=== PATIENT | female | born 1945 | race Caucasian/White ===

== ENCOUNTER 2018-12-07 08:00 | Outpatient (CLI) | payer MEDICARE, OTHER | END 2018-12-07 23:59 | disposition home or self-care (01) | LOC: D.MAMMO 08:00 | PROVIDERS: ATTEND Family Medicine | DX: Z12.31 Encounter for screening mammogram for malignant neoplasm of breast (principal) ==

== ENCOUNTER 2019-04-14 18:50 | Emergency (ER) | payer MEDICARE, OTHER ==
[~2019-04-14] VITALS: Ht 165.1 cm; Wt 50.0 kg
[2019-04-14 19:06] VITALS: Ht 165.1 cm; Wt 50.0 kg
[2019-04-14] MEDS ORDERED: [UNRECOGNIZED DRUG - REMARK] (19:07)
[2019-04-14] MEDS ORDERED: [UNRECOGNIZED DRUG - REMARK] (19:08)
[2019-04-14] MEDS ORDERED: GLUCOPHAGE500 MG PO (19:09)
[2019-04-14] MEDS ORDERED: AFRIN15 ML NASAL (20:28)
[2019-04-14] MEDS ORDERED: NICODERM C1 PATCH .3 TRANSDERM (20:28)
[2019-04-14 20:31] LABS: HEMATOCRIT 40.7 % (36.0-48.0); HEMOGLOBIN 13.7 g/dL (12-16); MCH 31.4 pg (26.0-34.0); MCHC 33.7 g/dL (31.0-37.0); MCV 93.1 fL (80.0-100.0); MEAN PLATELET VOLUME 9.8 fL (7.4-10.4); PLATELET COUNT 163 10x3/uL (130-400); RBC 4.37 10x6/uL (4.00-5.40); RDW 13.3 % (11.5-14.5); WBC 4.8 10x3/uL (4.8-10.8)
[2019-04-14 20:34] LABS: INR 1.03 (0.85-1.17)
[2019-04-14 20:35] LABS: CALC OSMOLALITY 280 mosm/kg (275-300); CALCIUM 8.7 mg/dL (8.5-10.1); CARBON DIOXIDE 31.2 mmol/L (21.0-32.0); CHLORIDE - SERUM 106 mmol/L (98-107); CREATININE - SERUM 0.6 mg/dL (0.6-1.3); GLUCOSE 80 mg/dL (74-106); POTASSIUM - SERUM 3.8 mmol/L (3.5-5.1); SODIUM 141 mmol/L (136-145); UREA NITROGEN 14 mg/dL (7-18); eGFR NON AFRICAN AMERICAN > 90 mL/min (90-120)
[2019-04-14 20:40] LABS: ALBUMIN 3.7 g/dL (3.4-5.0); ALKALINE PHOSPHATASE 64 U/L (46-116); ALT (SGPT) 16 U/L (10-68); BILIRUBIN - TOTAL 0.42 mg/dL (0.2-1.3); PROTEIN - SERUM 6.7 g/dL (6.4-8.2)
[2019-04-14 20:44] LABS: EOSINOPHILS 3 % (0-7); LYMPHOCYTES 71 % (15-50); MONOCYTES 1 % (2-11); NEUTROPHILS 25 % (40-80); PLATELET ESTIMATE NORMAL
[2019-04-14 20:55] VITALS: BP 116/68
== END 2019-04-14 20:58 | disposition home or self-care (01) ==
LOC: D.ER 18:50
PROVIDERS: Family Medicine
DX: R04.0 Epistaxis (principal)